=== PATIENT | male | born 1945 | race Caucasian/White ===

== ENCOUNTER 2024-02-17 11:58 | Day surgery (SDC) | payer MEDICARE, OTHER ==
[2024-02-13 14:17] LABS: BASOPHILS # (AUTO) 0.1 X10'3 (0-0.2); EOSINOPHILS # (AUTO) 0.6 X10'3 (0-0.9); EOSINOPHILS % (AUTO) 6.7 % (0-6); HEMATOCRIT 40.6 % (42.0-52.0); HEMOGLOBIN 13.6 g/dl (14.0-17.9); LYMPHOCYTES # (AUTO) 1.8 X10'3 (1.1-4.8); LYMPHOCYTES % (AUTO) 21.7 % (21-51); MEAN CORPUSCULAR HEMOGLOBIN 32.4 PG (27.0-31.0); MEAN CORPUSCULAR HGB CONC 33.5 g/dL (33.0-36.5); MEAN CORPUSCULAR VOLUME 96.7 FL (78-98); MONOCYTES # (AUTO) 0.7 X10'3 (0-0.9); MONOCYTES % (AUTO) 8.6 % (2-12); NEUTROPHILS # (AUTO) 5.2 X10'3 (1.8-7.7); PLATELET COUNT 151 X10'3 (140-440); RED CELL DISTRIBUTION WIDTH 14.4 % (11.5-14.5); WHITE BLOOD COUNT 8.3 X10'3 (4.5-11.0)
[2024-02-13 14:30] LABS: APTT 27 SECONDS (22-32); INR 1.2 INR; PROTHROMBIN TIME 12.2 SECONDS (9.0-12.0)
[2024-02-13 14:36] LABS: ALBUMIN 3.9 G/DL (3.4-5.0); ANION GAP 8 (8-16); BLOOD UREA NITROGEN 23 MG/DL (7-18); BUN/CREATININE RATIO 16.9 (10.0-20.0); CALCIUM 9.4 MG/DL (8.5-10.1); CHLORIDE 105 MMOL/L (99-107); CHOL/HDL RATIO 2.7 (0.00-4.99); CHOLESTEROL 171 MG/DL (0-200); CREATININE 1.36 MG/DL (0.60-1.10); GLUCOSE 146 MG/DL (70-104); HDL CHOLESTEROL 63 MG/DL (35-60); LDL CHOLESTEROL 82 MG/DL (50-100); POTASSIUM 4.6 MMOL/L (3.5-5.1); SODIUM 139 MMOL/L (135-145); TOTAL CARBON DIOXIDE 26.5 MMOL/L (24-32); TRIGLYCERIDES 113 MG/DL (20-135); eGFR 51 ML/MIN
[2024-02-17] VITALS (8 sets, daily range): BP systolic 93–117; BP diastolic 52–64; PULSE 55–60; RESP 16; TEMP 97.5; O2SAT 95–99
[~2024-02-17] VITALS: Ht 185.4 cm; Wt 119.7 kg
[2024-02-17] MEDS ORDERED: FLUO40CA PO (13:03)
[2024-02-17] MEDS ORDERED: DOXY100T2 PO (13:03)
[2024-02-17] MEDS ORDERED: PROP1DRO7 OP (13:03)
[2024-02-17] MEDS ORDERED: CHOL500044 PO (13:03)
[2024-02-17] MEDS ORDERED: ALLO300T8 PO (13:03)
[2024-02-17] MEDS ORDERED: LISI10TA27 PO (13:03)
[2024-02-17] MEDS ORDERED: OMEG-270 PO (13:03)
[2024-02-17] MEDS ORDERED: FOLI0.8C PO (13:03)
[2024-02-17] MEDS ORDERED: MULT-1085 PO (13:03)
[2024-02-17] MEDS ORDERED: ROSU40TA71 PO (13:03)
[2024-02-17] MEDS ORDERED: OMEP20CA16 PO (13:03)
[2024-02-17] MEDS: diphenhydrAMINE 25mg capsule PO PRN (14:00)
[2024-02-17] MEDS: LORazepam 0.5 MG tablet PO PRN (14:00)
[2024-02-17] MEDS: normal saline 1,000 ML IV SCH (14:02)
[2024-02-17] MEDS: LIDOcaine 1% (10mg/ml) 2ml vial ONE (14:02)
[2024-02-17] MEDS ORDERED: midazolam 1 mg/ML 2ml injection ONE (14:35)
[2024-02-17] MEDS ORDERED: fentaNYL/PF 50MCG/1 ML 2ML syringe ONE (14:35)
[2024-02-17] MEDS ORDERED: LIDOcaine 1% (10mg/ml) 2ml vial ONE ×2 (14:36→16:05)
[2024-02-17] MEDS ORDERED: heparin 1,000unit/ml 10ml vial 10 ML ONE (14:36)
[2024-02-17] MEDS ORDERED: iohexol 350MG/ML 100ml bottle IV ONE ×2 (14:36→16:09)
[2024-02-17] MEDS ORDERED: verapamil 2.5 mg/ml inj IV ONE (14:36)
[2024-02-17] MEDS ORDERED: nitroGLYCERIN 500mcg/5mL D5W 5 ML IV ONE (14:41)
[2024-02-17] MEDS ORDERED: LIDOcaine 1% 30ml preserv. free vial ONE (16:23)
[2024-02-17 16:28] LABS: ISTAT HGB ART 11.6 g/dl (14.0-17.9); ISTAT Hct ART 34 %PCV (42-52); ISTAT O2 SATURATION ARTERIAL 97 % (95-98); ISTAT SOURCE ART
[2024-02-17] MEDS ORDERED: HYDROcodone/acetaminophen 10/325mg tab PO PRN (18:20)
[2024-02-17] MEDS ORDERED: HYDROcodone/acetaminophen 5mg/325mg tablet PO PRN (18:20)
[2024-02-18 07:18] LABS: ISTAT HGB MIX 11.9 g/dl (14.0-17.9); ISTAT Hct MIX 35 %PCV (42-52); ISTAT O2 SATURATION MIX VENOUS 69 % (60-80); ISTAT SOURCE VEN
== END 2024-02-17 18:51 | disposition home or self-care (01) ==
LOC: SSTAY O 11:58
PROVIDERS: ATTEND Student in an Organized Health Care Education/Training Program
DX: I35.0 Nonrheumatic aortic (valve) stenosis (principal); I49.1 Atrial premature depolarization; I10 Essential (primary) hypertension; E78.00 Pure hypercholesterolemia, unspecified; K21.9 Gastro-esophageal reflux disease without esophagitis; Z79.1 Long term (current) use of non-steroidal anti-inflammatories (NSAID); Z79.2 Long term (current) use of antibiotics; Z79.899 Other long term (current) drug therapy; Z88.8 Allergy status to other drugs, medicaments and biological substances
CPT/HCPCS: 36415; 80048; 80061; 82803; 85014; 85025; 85610; 85730; 93005; 93456; 99152; 99153; A6258; A6402; C1751; C1760; C1894; J1644; J2001; J2250; J3010; J3490; J7030; Q0163; Q9967; Z7610

== ENCOUNTER 2024-03-11 10:46 | Outpatient (CLI) | payer MEDICARE, OTHER ==
[~2024-03-11 10:46] MED LIST: ALLO300T8 PO; CHOL500044 PO; DOXY100T2 PO; FLUO40CA PO; FOLI0.8C PO; LISI10TA27 PO; MULT-1085 PO; OMEG-270 PO; OMEP20CA16 PO; PROP1DRO7 OP; ROSU40TA89 PO
[2024-03-11] MEDS ORDERED: IODIXANOL 320 MG/ML INFUS..BTL 100ML IV ONE (10:49)
[2024-03-11 11:14] LABS: BASOPHILS # (AUTO) 0.1 X10'3 (0-0.2); EOSINOPHILS # (AUTO) 0.5 X10'3 (0-0.9); EOSINOPHILS % (AUTO) 6.8 % (0-6); HEMATOCRIT 39.7 % (42.0-52.0); HEMOGLOBIN 13.3 g/dl (14.0-17.9); LYMPHOCYTES # (AUTO) 1.2 X10'3 (1.1-4.8); LYMPHOCYTES % (AUTO) 15.9 % (21-51); MEAN CORPUSCULAR HEMOGLOBIN 32.2 PG (27.0-31.0); MEAN CORPUSCULAR HGB CONC 33.4 g/dL (33.0-36.5); MEAN CORPUSCULAR VOLUME 96.2 FL (78-98); MEAN PLATELET VOLUME 9.2 FL (7.4-10.4); MONOCYTES # (AUTO) 0.6 X10'3 (0-0.9); MONOCYTES % (AUTO) 7.8 % (2-12); NEUTROPHILS # (AUTO) 5.4 X10'3 (1.8-7.7); NEUTROPHILS % (AUTO) 68.5 % (42-75); PLATELET COUNT 147 X10'3 (140-440); RED BLOOD COUNT 4.13 X10'6 (4.70-6.10); RED CELL DISTRIBUTION WIDTH 14.3 % (11.5-14.5); WHITE BLOOD COUNT 7.8 X10'3 (4.5-11.0)
[2024-03-11 11:38] LABS: APTT 26 SECONDS (22-32); INR 1.1 INR; PROTHROMBIN TIME 11.9 SECONDS (9.0-12.0)
[2024-03-11 11:46] LABS: ALANINE AMINOTRANSFERASE 30 U/L (12-78); ALBUMIN 3.8 G/DL (3.4-5.0); ALBUMIN/GLOBULIN RATIO 1.2 (1.1-1.5); ALKALINE PHOSPHATASE 94 IU/L (46-116); ANION GAP 6 (8-16); ASPARTATE AMINO TRANSFERASE 21 U/L (10-37); BILIRUBIN,TOTAL 0.8 MG/DL (0.1-1.0); BLOOD UREA NITROGEN 18 MG/DL (7-18); BUN/CREATININE RATIO 12.6 (10.0-20.0); CALCIUM 9.6 MG/DL (8.5-10.1); CHLORIDE 102 MMOL/L (99-107); CREATININE 1.43 MG/DL (0.60-1.10); GLUCOSE 212 MG/DL (70-104); POTASSIUM 4.1 MMOL/L (3.5-5.1); SODIUM 136 MMOL/L (135-145); TOTAL CARBON DIOXIDE 27.6 MMOL/L (24-32); TOTAL PROTEIN 6.9 G/DL (6.4-8.2); eGFR 48 ML/MIN
[2024-03-11 11:50] LABS: PRO BRAIN NATRIURETIC PEPTIDE 441 PG/ML (0-450)
== END 2024-03-11 23:59 | disposition home or self-care (01) ==
LOC: RAD 10:46
PROVIDERS: ATTEND Internal Medicine Cardiovascular Disease
DX: I35.0 Nonrheumatic aortic (valve) stenosis (principal); R06.02 Shortness of breath; I65.29 Occlusion and stenosis of unspecified carotid artery
CPT/HCPCS: 36415; 71046; 71275; 74174; 75572; 80053; 83880; 85025; 85610; 85730; Q9967

== ENCOUNTER 2024-04-29 08:29 | Inpatient (IN) | payer MEDICARE, OTHER ==
[2024-04-26 11:39] LABS: BILIRUBIN,URINE NEGATIVE (Neg); CLARITY,URINE CLEAR (Clear); COLOR,URINE YELLOW (Yellow); GLUCOSE, URINE NEGATIVE (Neg); KETONES,URINE NEGATIVE (Neg); LEUKOCYTE ESTERASE ,URINE NEGATIVE (Neg); NITRITES, URINE NEGATIVE (Neg); OCCULT BLOOD,URINE NEGATIVE (Neg); PROTEIN,URINE NEGATIVE (Neg); UROBILINOGEN,URINE 0.2 E.U/dL (0.2-1.0)
[2024-04-26 11:41] LABS: BASOPHILS # (AUTO) 0.1 X10'3 (0-0.2); BASOPHILS % (AUTO) 1.2 % (0-1); EOSINOPHILS # (AUTO) 0.5 X10'3 (0-0.9); EOSINOPHILS % (AUTO) 6.6 % (0-6); LYMPHOCYTES # (AUTO) 1.8 X10'3 (1.1-4.8); LYMPHOCYTES % (AUTO) 21.6 % (21-51); MEAN CORPUSCULAR HEMOGLOBIN 33.2 PG (27.0-31.0); MEAN CORPUSCULAR HGB CONC 34.7 g/dL (33.0-36.5); MEAN CORPUSCULAR VOLUME 95.8 FL (78-98); MEAN PLATELET VOLUME 9.3 FL (7.4-10.4); MONOCYTES # (AUTO) 0.6 X10'3 (0-0.9); MONOCYTES % (AUTO) 7.3 % (2-12); NEUTROPHILS # (AUTO) 5.1 X10'3 (1.8-7.7); NEUTROPHILS % (AUTO) 63.3 % (42-75); PRE OP HEMATOCRIT 39.4 % (42.0-52.0); PRE OP HEMOGLOBIN 13.6 g/dL (14.0-17.9); PRE OP PLATELET COUNT 152 X10'3 (140-440); PRE OP WHITE BLOOD COUNT 8.1 10'3 (4.8-10.8); RED BLOOD COUNT 4.11 X10'6 (4.70-6.10)
[2024-04-26 11:45] LABS: UA COLLECTION TYPE CLN CATCH MIDSTREAM
[2024-04-26 11:57] LABS: PRE OP INR 1.1 INR; PRE OP PROTIME 11.9 SECONDS (9.0-12.0)
[2024-04-26 12:06] LABS: ALBUMIN 4.1 G/DL (3.4-5.0); ALBUMIN/GLOBULIN RATIO 1.2 (1.1-1.5); ALKALINE PHOSPHATASE 95 IU/L (46-116); BLOOD UREA NITROGEN 18 MG/DL (7-18); BUN/CREATININE RATIO 12.6 (10.0-20.0); CALCIUM 9.3 MG/DL (8.5-10.1); CHLORIDE 103 MMOL/L (99-107); CREATININE 1.43 MG/DL (0.60-1.10); PRE OP ALT 28 U/L (30-65); PRE OP ANION GAP 7 (8-16); PRE OP AST 25 U/L (10-37); PRE OP BILIRUB, TOTAL 0.9 MG/DL (0.0-1.0); PRE OP GLUCOSE 137 MG/DL (70-104); PRE OP POTASSIUM 4.4 MMOL/L (3.4-5.1); PRE OP SODIUM 139 MMOL/L (135-145); PRO BRAIN NATRIURETIC PEPTIDE 489 PG/ML (0-450); TOTAL CARBON DIOXIDE 29.3 MMOL/L (24-32); TOTAL PROTEIN 7.6 G/DL (6.4-8.2); eGFR 48 ML/MIN
[~2024-04-29] VITALS: Ht 185.4 cm; Wt 119.0 kg
[2024-04-29] VITALS (30 sets, daily range): BP systolic 109–173; BP diastolic 56–76; PULSE 48–63; RESP 10–19; TEMP 97.3–98.6; O2SAT 92–100
[2024-04-29] MEDS: ringers solution, lacted 1,000 ML IV SCH ×2 (05:30→13:55)
[~2024-04-29 08:29] MED LIST changes: -FOLI0.8C PO; +FOLI0.8T3 PO; +PROP10DR3 EACHEYE; -PROP1DRO7 OP; +ondansetron/PF 4mg/2ml inj IV PRN; +protamine sulfate 10mg/ml inj. ONE
[2024-04-29] MEDS: Cefazolin 3 GM/100ML NS IVPB 100 ML IV ONE (09:22)
[2024-04-29] MEDS: VANCOMYCIN 1,500MG inj. 1,500 MG in normal saline 500ml IV soln 300 ML IV ONE (09:23)
[2024-04-29] MEDS: famotidine 20mg tablet PO ONE (09:23)
[2024-04-29] MEDS: phenylephrine inj 50 MG in normal saline 250ml IV solN IV SCH (09:23)
[2024-04-29] MEDS: nitroPRUSSIDE (NIPRIDE) (200MCG/ML) 100ML Drip IV SCH (09:23)
[2024-04-29] MEDS: aspirin 325mg tablet PO ONE (09:23)
[2024-04-29] MEDS: LIDOcaine 1% (10mg/ml) 2ml vial ONE (09:24)
[2024-04-29] MEDS ORDERED: midazolam 1 mg/ML 2ml injection ONE (12:25)
[2024-04-29] MEDS ORDERED: fentaNYL/PF 50MCG/1 ML 2ML syringe ONE (12:25)
[2024-04-29] MEDS ORDERED: LIDOcaine 1% 30ml preserv. free vial ONE (12:35)
[2024-04-29] MEDS ORDERED: heparin 1,000unit/ml 10ml vial 10 ML ONE (13:05)
[2024-04-29] MEDS ORDERED: propofol inj 20 ML IV ONE ×4 (13:05)
[2024-04-29] MEDS ORDERED: acetaminophen 325mg tablet PO PRN (13:45)
[2024-04-29] MEDS ORDERED: proCHLORperazine 10 MG/2 ml inj IV PRN ×2 (13:45→13:55)
[2024-04-29] MEDS ORDERED: potassium Cl 40MEQ/270ML bag 250 ML IV PRN (13:45)
[2024-04-29] MEDS ORDERED: labetalol 20mg/4ml (5mg/ml) syringe IV PRN (13:45)
[2024-04-29] MEDS ORDERED: potassium Cl 20 mEq SR tablet PO PRN (13:45)
[2024-04-29] MEDS ORDERED: HYDROcodone/acetaminophen 5mg/325mg tablet PO PRN (13:45)
[2024-04-29] MEDS ORDERED: potassium Cl 20mEq/100mL bag 100 ML IV PRN (13:45)
[2024-04-29] MEDS ORDERED: docusate sod 100mg capsule PO PRN (13:45)
[2024-04-29] MEDS ORDERED: magnesium sulf-water 4G/100mL 100 ML IV PRN (13:45)
[2024-04-29] MEDS ORDERED: potassium CL 10mEq/100ml bag 100 ML IV PRN (13:45)
[2024-04-29] MEDS ORDERED: potassium Cl 40MEQ/1/2NS 520ml 520 ML IV PRN (13:45)
[2024-04-29] MEDS ORDERED: ALPRAZolam 0.25mg tablet PO PRN (13:45)
[2024-04-29] MEDS ORDERED: magnesium sulf-water 2g/50mL 50 ML IV PRN (13:45)
[2024-04-29] MEDS ORDERED: ondansetron/PF 4mg/2ml inj IV PRN ×2 (13:45→13:55)
[2024-04-29] MEDS ORDERED: pantoprazole 40mg Tablet.DR PO PRN (13:45)
[2024-04-29] MEDS ORDERED: hydrALAZINE 20mg/ml inj. IV PRN (13:45)
[2024-04-29] MEDS ORDERED: diphenhydrAMINE 25mg capsule PO PRN (13:45)
[2024-04-29] MEDS: acetaminophen 1,000mg/100ml IV 100 ML IV ONE (13:55)
[2024-04-29] MEDS ORDERED: morphine 4 MG/ML inj SYRINge IV PRN (13:55)
[2024-04-29] MEDS ORDERED: morphine 2 MG/ML inj. syringe IV PRN (13:55)
[2024-04-29] MEDS ORDERED: meperidine/PF 25mg/ml syringe IV PRN (13:55)
[2024-04-29] MEDS ORDERED: HYDROmorphone/PF 0.2 MG/ML SYRINGE IV PRN ×2 (13:55)
[2024-04-29] MEDS: VANCOMYCIN 1GM 200ML H20 (PEG) 200 ML IV SCH (20:36)
[2024-04-29] MEDS: normal saline 1000ml 1,000 ML IV SCH (23:45)
[2024-04-30] MEDS: sod chloride 0.9% 10ml flush syringe IV SCH
[2024-04-30] MEDS: ceFAZolin 1GM/D5W- ADD-VANTAGE 50 ML IV SCH (01:16)
[2024-04-30 02:00] VITALS: BP 116/55; PULSE 59; RESP 16; TEMP 97.9; O2SAT 98
[2024-04-30] MEDS ORDERED: vancomycin/NS 1 GM ADD-VANTAGE 250 ML IV SCH (03:10)
[2024-04-30 07:27] LABS: BASOPHILS % (AUTO) 0.5 % (0-1); EOSINOPHILS # (AUTO) 0.3 X10'3 (0-0.9); EOSINOPHILS % (AUTO) 4.2 % (0-6); HEMATOCRIT 34.6 % (42.0-52.0); LYMPHOCYTES # (AUTO) 0.8 X10'3 (1.1-4.8); MEAN CORPUSCULAR HEMOGLOBIN 33.4 PG (27.0-31.0); MEAN CORPUSCULAR HGB CONC 34.8 g/dL (33.0-36.5); MEAN CORPUSCULAR VOLUME 96.1 FL (78-98); MEAN PLATELET VOLUME 9.4 FL (7.4-10.4); MONOCYTES # (AUTO) 0.7 X10'3 (0-0.9); MONOCYTES % (AUTO) 10.7 % (2-12); NEUTROPHILS # (AUTO) 5.1 X10'3 (1.8-7.7); NEUTROPHILS % (AUTO) 73.6 % (42-75); PLATELET COUNT 99 X10'3 (140-440); RED CELL DISTRIBUTION WIDTH 14.1 % (11.5-14.5)
[2024-04-30] MEDS: vancomycin/NS 1 GM ADD-VANTAGE 250 ML IV SCH (07:47)
[2024-04-30] MEDS: atorvastatin 20mg tablet PO SCH (07:47)
[2024-04-30] MEDS: folic acid 0.4mg tablet PO SCH (07:47)
[2024-04-30] MEDS: OMEGA-3/DHA/EPA/FISH OIL 1 EACH CAPSULE.DR PO SCH (07:48)
[2024-04-30] MEDS: aspirin 81mg tab.chew PO SCH (07:48)
[2024-04-30] MEDS: cholecalciferol (vitamin D3) 1,000 unit (25mcg) tablet PO SCH (07:49)
[2024-04-30] MEDS: FLUoxetine 20mg capsule PO SCH (07:49)
[2024-04-30] MEDS: multivitamins, therapeutics tablet PO SCH (07:50)
[2024-04-30] MEDS: allopurinol 100mg tablet PO SCH (07:52)
[2024-04-30] MEDS: pantoprazole 40mg Tablet.DR PO SCH (07:53)
[2024-04-30 07:54] LABS: ALANINE AMINOTRANSFERASE 21 U/L (12-78); ALBUMIN 3.2 G/DL (3.4-5.0); ALBUMIN/GLOBULIN RATIO 1.1 (1.1-1.5); ALKALINE PHOSPHATASE 70 IU/L (46-116); ANION GAP 8 (8-16); ASPARTATE AMINO TRANSFERASE 24 U/L (10-37); BILIRUBIN,TOTAL 0.8 MG/DL (0.1-1.0); BLOOD UREA NITROGEN 16 MG/DL (7-18); BUN/CREATININE RATIO 12.5 (10.0-20.0); CALCIUM 8.8 MG/DL (8.5-10.1); CHLORIDE 105 MMOL/L (99-107); CREATININE 1.28 MG/DL (0.60-1.10); GLUCOSE 132 MG/DL (70-104); MAGNESIUM 1.8 MG/DL (1.5-2.4); POTASSIUM 4.1 MMOL/L (3.5-5.1); PRO BRAIN NATRIURETIC PEPTIDE 795 PG/ML (0-450); SODIUM 138 MMOL/L (135-145); TOTAL CARBON DIOXIDE 25.4 MMOL/L (24-32); eCRCL 52 ML/MIN; eGFR 54 ML/MIN
[2024-04-30] MEDS: DOXYCYCLINE 100MG CAPSULE PO SCH (07:54)
[2024-04-30 07:55] VITALS: BP_SYST 120; PULSE 63
[2024-04-30] MEDS: lisinopril 10 MG tablet PO SCH (07:55)
[2024-04-30 08:00] VITALS: RESP 18; O2SAT 96
[2024-04-30] MEDS: PROPYLENE GLYCOL EACHEYE SCH (08:00)
[2024-04-30] MEDS: PEG EACHEYE SCH (08:00)
[2024-04-30] MEDS ORDERED: ASPI81TA53 PO (10:27)
== END 2024-04-30 14:24 | disposition home or self-care (01) | DRG 266 ==
LOC: PAS IN 08:29 → EDSTATUS 08:30 → PCU 3S 18:07
PROVIDERS: ADMIT Internal Medicine Cardiovascular Disease; ATTEND Internal Medicine Cardiovascular Disease
PROC: 027F3ZZ Dilation of Aortic Valve, Percutaneous Approach (ICD-10-PCS; 2024-04-29)
PROC: B41D1ZZ Fluoroscopy of Aorta and Bilateral Lower Extremity Arteries using Low Osmolar Contrast (ICD-10-PCS; 2024-04-29)
PROC: 03HY32Z Insertion of Monitoring Device into Upper Artery, Percutaneous Approach (ICD-10-PCS; 2024-04-29)
PROC: 02RF38Z Replacement of Aortic Valve with Zooplastic Tissue, Percutaneous Approach (ICD-10-PCS; principal; 2024-04-29 12:19)
DX: I35.0 Nonrheumatic aortic (valve) stenosis (principal); Z00.6 Encounter for examination for normal comparison and control in clinical research program; I50.33 Acute on chronic diastolic (congestive) heart failure; I11.0 Hypertensive heart disease with heart failure; E78.5 Hyperlipidemia, unspecified; K21.9 Gastro-esophageal reflux disease without esophagitis; Z88.8 Allergy status to other drugs, medicaments and biological substances
CPT/HCPCS: 33361; 36415; 71045; 71046; 76937; 80053; 81003; 82948; 83735; 83880; 85025; 85347; 85610; 85730; 86885; 86900; 86901; 86920; 87081; 93005; 93308; A4618; A6258; A6449; C1756; C1760; C1894; G0378; J0690; J1644; J2003; J2250; J2371; J2704; J2720; J3010; J3370; J3372; J3490; J7030; J7040; J7050; J7120

== ENCOUNTER 2024-12-10 13:58 | Outpatient (CLI) | payer MEDICARE, OTHER ==
[~2024-12-10 13:58] MED LIST changes: +ASPI81TA53 PO; -ondansetron/PF 4mg/2ml inj IV PRN; -protamine sulfate 10mg/ml inj. ONE
[2024-12-10 14:54] LABS: MEAN PLATELET VOLUME 8.9 FL (7.4-10.4); RED CELL DISTRIBUTION WIDTH 14.2 % (11.5-14.5)
[2024-12-10 15:03] LABS: CHOL/HDL RATIO 2.8 (0.00-4.99); CREATININE 1.37 MG/DL (0.60-1.10); LDL CHOLESTEROL 81 MG/DL (50-100); TOTAL CARBON DIOXIDE 28.0 MMOL/L (24-32); eGFR 50 ML/MIN
[2024-12-10 15:28] LABS: LEUKOCYTE ESTERASE ,URINE NEGATIVE (Neg); NITRITES, URINE NEGATIVE (Neg); OCCULT BLOOD,URINE NEGATIVE (Neg)
[2024-12-10 15:30] LABS: UA COLLECTION TYPE CLN CATCH MIDSTREAM
[2024-12-10 15:35] LABS: HYALINE CASTS 0-3 /LPF (NEGATIVE); SQUAMOUS EPITHELIAL CELL,UR FEW /LPF (FEW)
[2024-12-10 15:36] LABS: RENAL CELLS, URINE FEW /HPF
--- NOTE | 2024-12-10 18:08 | RADIOLOGY REPORT ---
CLINICAL INDICATION: RIGHT KNEE JOINT PAIN TECHNIQUE: DI KNEE, COMP 4 VW MIN Comparison: None FINDINGS/IMPRESSION: : There is no evidence of acute fracture or dislocation. Small joint effusion. Severe tricompartmental degenerative change.
[2024-12-13 08:11] LABS: PSA, ULTRASENSITIVE W/O SERIAL 0.641 ng/mL (0.000-4.000)
== END 2024-12-10 23:59 | disposition home or self-care (01) ==
LOC: RAD 13:58
PROVIDERS: ATTEND Registered Nurse
DX: M17.11 Unilateral primary osteoarthritis, right knee (principal); M25.561 Pain in right knee; M25.461 Effusion, right knee; Z00.00 Encounter for general adult medical examination without abnormal findings; I10 Essential (primary) hypertension; R73.09 Other abnormal glucose; E55.9 Vitamin D deficiency, unspecified; Z12.5 Encounter for screening for malignant neoplasm of prostate; E78.5 Hyperlipidemia, unspecified
CPT/HCPCS: 36415; 73564; 73610; 73630; 80053; 80061; 81001; 82306; 83036; 84153; 85025

== ENCOUNTER 2024-12-10 14:17 | Outpatient (CLI) | payer MEDICARE, OTHER ==
--- NOTE | 2024-12-10 18:07 | RADIOLOGY REPORT ---
CLINICAL INDICATION: PAIN IN RIGHT FOOT AND ANKLE TECHNIQUE: Right DI FOOT, COMPLETE (3VW MIN) Comparison: None FINDINGS/IMPRESSION: : There is no evidence of acute fracture or dislocation. Soft tissues are unremarkable. Degenerative changes of the 1st DIP.
--- NOTE | 2024-12-10 18:08 | RADIOLOGY REPORT ---
CLINICAL INDICATION: PAIN IN RIGHT FOOT AND ANKLE TECHNIQUE: DI ANKLE, COMPLETE(3VW MIN) Comparison: None FINDINGS/IMPRESSION: : There is no evidence of acute fracture or dislocation. Small joint effusion. Diffuse degenerative changes.
== END 2024-12-10 23:59 | disposition home or self-care (01) ==
LOC: RAD 14:17
PROVIDERS: ATTEND Podiatrist Foot & Ankle Surgery
DX: M19.071 Primary osteoarthritis, right ankle and foot (principal); M79.671 Pain in right foot; M25.571 Pain in right ankle and joints of right foot
CPT/HCPCS: 73610; 73630